=== PATIENT | male | born 1940 ===

== ENCOUNTER 2024-05-22 10:11 | Inpatient (IN) | payer MEDICARE, OTHER ==
[~2024-05-22] VITALS: Ht 184.6 cm; Wt 63.5 kg
[~2024-05-22 10:11] MED LIST: DONE10TA11 PO; MEMA10TA PO; MIRA50TA PO; PANT40TA49 PO; QUET25TA PO; ROSU40TA PO; TAMS-3 PO; TROS20TA3 PO; VENL37.55 PO
[2024-05-22] MEDS: IV NORMAL SALINE 1000 ML BAG IV ONE (10:36)
[2024-05-22 10:43] LABS: BASOPHILS % (AUTO) 0.7 % (0.0-2.0); EOSINOPHILS # (AUTO) 0.1 K/uL (0.0-0.7); EOSINOPHILS % (AUTO) 2.8 % (0.0-7.0); HEMOGLOBIN 10.9 g/dL (12.5-16.3); LYMPHOCYTES # (AUTO) 0.6 K/uL (0.8-4.8); LYMPHOCYTES % (AUTO) 12.9 % (20.5-51.5); MEAN CORPUSCULAR HEMOGLOBIN 31.9 uug (23.8-33.4); MEAN CORPUSCULAR HGB CONC 34 g/dL (32.5-36.3); MEAN CORPUSCULAR VOLUME 93.7 fL (73.0-96.2); MONOCYTES # (AUTO) 0.4 K/uL (0.1-1.30); NEUTROPHILS # (AUTO) 3.2 K/uL (1.8-8.9); NEUTROPHILS % (AUTO) 73.6 % (38.5-71.5); PLATELET COUNT (AUTO) 208 K/uL (152-348); RED BLOOD CELL COUNT(AUTO) 3.41 MIL/uL (4.06-5.63); RED CELL DISTRIBUTION WIDTH 14.8 % (12.1-16.2); WHITE BLOOD COUNT (AUTO) 4.4 K/uL (3.6-10.2)
[2024-05-22 10:48] LABS: DIFFERENTIAL COMMENT 1
[2024-05-22 10:53] LABS: AMMONIA < 10 umol/L (11-32); CALCIUM 8.5 mg/dL (8.5-10.1); CARBON DIOXIDE 27 mmol/L (21-32); CHLORIDE 104 mmol/L (98-107); GLUCOSE 111 mg/dL (74-106); POTASSIUM 4.5 mmol/L (3.5-5.1); SODIUM SERUM 142 mmol/L (136-145); UREA NITROGEN, BLOOD 12 mg/dL (7-18)
[2024-05-22 11:02] LABS: LACTIC ACID 2.3 mmol/L (0.4-2.0)
[2024-05-22 11:03] LABS: ETHANOL < 3 MG/DL (0-10)
[2024-05-22 11:06] LABS: THYROID STIMULATING HORMONE 3.207 mIU/mL (0.358-3.740)
[2024-05-22 11:07] LABS: ACETAMINOPHEN < 10.0 ug/mL (10-30); ALANINE AMINOTRANSFERASE 20 U/L (16-63); ALBUMIN 3.2 g/dL (3.4-5.0); ALKALINE PHOSPHATASE 58 U/L (50-136); ASPARTATE AMINOTRANSFERASE 16 U/L (15-37); BILIRUBIN,DIRECT 0.1 mg/dL (0.0-0.2); BILIRUBIN,TOTAL 0.4 mg/dL (0.2-1.0)
[2024-05-22] MEDS ORDERED: DEXAMETHASONE SOD PHOSPHATE 10 MG INJ ONE (11:32)
[2024-05-22] MEDS ORDERED: CEFTRIAXONE /D5W 50ML IVPB **ER PYXIS IV ONE (11:32)
[2024-05-22] MEDS ORDERED: VANCOMYCIN IV 200 ML ONE (11:32)
[2024-05-22] MEDS ORDERED: ROSU20TA32 PO (11:39)
[2024-05-22] MEDS ORDERED: ALPR0.255 PO (11:39)
[2024-05-22] MEDS: CEFTRIAXONE 2 G in IV DEXTROSE 5% 100 ML IV ONE (11:43)
[2024-05-22] MEDS: DEXAMETHASONE SOD PHOSPHATE 4 MG INJ IV ONE (11:43)
[2024-05-22] MEDS: VANCOMYCIN IV 1,000 MG in IV DEXTROSE 5% 250 ML IV ONE (12:23)
[2024-05-22 13:13] LABS: *BILIRUBIN,URIN NEGATIVE (NEGATIVE); *BLOOD, URINE NEGATIVE (NEGATIVE); *CLARITY,URINE CLEAR (CLEAR); *COLOR,URINE YELLOW (YELLOW); *KETONES,URINE NEGATIVE (NEGATIVE); *PROTEIN,URINE NEGATIVE (NEGATIVE); *UROBILINOGEN,URINE 0.2 E.U./dl (NORMAL); LEUKOCYTE ESTERASE ,URINE NEGATIVE (NEGATIVE); NITRITE, URINE NEGATIVE (NEGATIVE); PH,URINE 7.5 (5.0-8.0); UGLUCOSE NEGATIVE (NEGATIVE)
[2024-05-22 13:22] LABS: *AMPHETAMINE, URINE NEGATIVE (NEGATIVE); *BARBITURATE, URINE NEGATIVE (NEGATIVE); *BENZODIAZEPINE, URINE NEGATIVE (NEGATIVE); *CANNABINOID, URINE NEGATIVE (NEGATIVE); *COCCAINE, URINE NEGATIVE (NEGATIVE); *OPIATE, URINE NEGATIVE (NEGATIVE); *PHENCYCLIDINE SCREEN,URINE NEGATIVE (NEGATIVE); FENTANYL, URINE NEGATIVE (NEGATIVE)
[2024-05-22] MEDS ORDERED: ACYCLOVIR 500 MG VIAL IV ONE ×2 (15:17→22:37)
[2024-05-22] MEDS: ACYCLOVIR IV 500 MG in IV DEXTROSE 5% 100 ML IV SCH (15:22)
[2024-05-22] MEDS ORDERED: ONDANSETRON 4 MG/2 ML VIAL IV PRN (17:15)
[2024-05-22] MEDS ORDERED: ACETAMINOPHEN 325 MG TABLET PO PRN (17:15)
[2024-05-22] MEDS ORDERED: TEMAZEPAM 15 MG CAPSULE PO PRN (17:15)
[2024-05-22] MEDS ORDERED: MAGNESIUM HYDROXIDE 30 ML LIQUID UDC PO PRN (17:15)
[2024-05-22] MEDS ORDERED: MEMANTINE HCL 10 MG TABLET PO SCH (17:30)
[2024-05-22] MEDS: IV NS 1000 ML 1,000 ML IV PRN (18:20)
[2024-05-22] MEDS: CEFTRIAXONE 1 G in IV DEXTROSE 5% 50 ML IV SCH (18:24)
[2024-05-22 19:20] VITALS: BP 151/87; TEMP 97.7; O2SAT 95
[2024-05-22] MEDS ORDERED: TROSPIUM CHLORIDE 20 MG PO SCH (20:00)
[2024-05-22] MEDS: DOCUSATE SODIUM 250 MG CAPSULE PO SCH (20:24)
[2024-05-22] MEDS: MEMANTINE HCL 10 MG TABLET PO SCH (20:24)
[2024-05-22] MEDS: ATORVASTATIN 40 MG TABLET PO SCH (20:24)
[2024-05-22 23:30] VITALS: BP 128/69; TEMP 97.9; O2SAT 94
[2024-05-23] MEDS: QUETIAPINE FUMARATE 25 MG TABLET PO PRN (00:43)
[2024-05-23 05:11] VITALS: BP 122/71; TEMP 98.2; O2SAT 97
[2024-05-23] MEDS ORDERED: ACYCLOVIR 500 MG VIAL IV ONE (05:18)
[2024-05-23] MEDS: PANTOPRAZOLE SODIUM 40 MG TABLET.DR PO SCH (06:10)
[2024-05-23 06:52] LABS: BASOPHILS % (AUTO) 0.2 % (0.0-2.0); HEMATOCRIT 34.3 % (36.7-47.1); HEMOGLOBIN 12.1 g/dL (12.5-16.3); LYMPHOCYTES # (AUTO) 0.3 K/uL (0.8-4.8); LYMPHOCYTES % (AUTO) 3.9 % (20.5-51.5); MEAN CORPUSCULAR HEMOGLOBIN 32.3 uug (23.8-33.4); MEAN CORPUSCULAR HGB CONC 35 g/dL (32.5-36.3); MEAN CORPUSCULAR VOLUME 91.7 fL (73.0-96.2); MONOCYTES # (AUTO) 0.4 K/uL (0.1-1.30); NEUTROPHILS # (AUTO) 7.2 K/uL (1.8-8.9); NEUTROPHILS % (AUTO) 90.9 % (38.5-71.5); PLATELET COUNT (AUTO) 207 K/uL (152-348); RED BLOOD CELL COUNT(AUTO) 3.74 MIL/uL (4.06-5.63); RED CELL DISTRIBUTION WIDTH 14.7 % (12.1-16.2); WHITE BLOOD COUNT (AUTO) 7.9 K/uL (3.6-10.2)
[2024-05-23 07:05] LABS: DIFFERENTIAL COMMENT 1
[2024-05-23 07:16] LABS: ALANINE AMINOTRANSFERASE 18 U/L (16-63); ALBUMIN 3.2 g/dL (3.4-5.0); ALKALINE PHOSPHATASE 61 U/L (50-136); ASPARTATE AMINOTRANSFERASE 13 U/L (15-37); BILIRUBIN,TOTAL 0.3 mg/dL (0.2-1.0); CALCIUM 8.4 mg/dL (8.5-10.1); CARBON DIOXIDE 24 mmol/L (21-32); CHLORIDE 106 mmol/L (98-107); CHOLESTEROL 105 mg/dL (<200); CREATININE 0.6 mg/dL (0.6-1.3); GLUCOSE 111 mg/dL (74-106); HDL CHOLESTEROL 51 mg/dL (40-60); PHOSPHOROUS 4.4 mg/dL (2.5-4.9); SODIUM SERUM 141 mmol/L (136-145); TOTAL PROTEIN, SERUM 6.5 g/dL (6.4-8.2); TRIGLYCERIDES 26 MG/DL (30-150); UREA NITROGEN, BLOOD 9 mg/dL (7-18)
[2024-05-23] MEDS: VENLAFAXINE XR 37.5 MG CAP.SR.24H PO SCH (08:37)
[2024-05-23] MEDS: DONEPEZIL 10 MG TABLET PO SCH (08:37)
[2024-05-23] MEDS ORDERED: TEMAZEPAM 7.5 MG CAPSULE PO PRN (08:45)
[2024-05-23] MEDS ORDERED: OLANZAPINE 10 MG VIAL IM ONE (09:15)
[2024-05-23 11:38] VITALS: BP 126/71; TEMP 97.8; O2SAT 97
[2024-05-23] MEDS ORDERED: ACYCLOVIR IV 500 MG in IV DEXTROSE 5% 100 ML IV SCH (14:00)
[2024-05-23] MEDS ORDERED: DOCUSATE SODIUM 100 MG CAPSULE PO SCH (21:00)
== END 2024-05-23 14:15 | disposition home or self-care (01) | DRG 69 ==
LOC: ER 10:19 → TELE3 15:03
PROVIDERS: ADMIT Internal Medicine; ATTEND Internal Medicine
DX: G45.9 Transient cerebral ischemic attack, unspecified (principal); G92.8 Other toxic encephalopathy; E87.20 Acidosis, unspecified; D68.59 Other primary thrombophilia; Z68.1 Body mass index [BMI] 19.9 or less, adult; F01.53 Vascular dementia, unspecified severity, with mood disturbance; J90 Pleural effusion, not elsewhere classified; I95.9 Hypotension, unspecified; H93.12 Tinnitus, left ear; E78.5 Hyperlipidemia, unspecified; Z74.09 Other reduced mobility; M50.30 Other cervical disc degeneration, unspecified cervical region; M99.51 Intervertebral disc stenosis of neural canal of cervical region; Z95.0 Presence of cardiac pacemaker; Z95.818 Presence of other cardiac implants and grafts; R62.7 Adult failure to thrive; D64.9 Anemia, unspecified; I49.9 Cardiac arrhythmia, unspecified; E04.1 Nontoxic single thyroid nodule; Z86.73 Personal history of transient ischemic attack (TIA), and cerebral infarction without residual deficits; I70.0 Atherosclerosis of aorta; Z79.899 Other long term (current) drug therapy; K21.9 Gastro-esophageal reflux disease without esophagitis; F32.A Depression, unspecified; I11.9 Hypertensive heart disease without heart failure
CPT/HCPCS: 36415; 70450; 71045; 72125; 83605; 83735; 84100; 84443; 84484; 85025; 85730; 87040; 87086; A4663; G0378; G0480; J0133; J0696; J1100; J3370; J7040

== ENCOUNTER 2024-06-01 03:03 | Inpatient (IN) | payer MEDICARE, OTHER ==
[~2024-06-01] VITALS: Ht 167.6 cm; Wt 65.8 kg
[~2024-06-01 03:03] MED LIST changes: +ALPR0.255 PO; -MIRA50TA PO; +ROSU20TA32 PO; -ROSU40TA PO; -TAMS-3 PO
[2024-06-01] MEDS: LIDOCAINE 2% (GLYDO= UROJET) 10 ML JELLY MM ONE (03:15)
[2024-06-01] MEDS ORDERED: diphenhydrAMINE 50 MG/1 ML VIAL ONE (03:16)
[2024-06-01] MEDS ORDERED: HALOPERIDOL LACTATE 5 MG/1 ML VIAL ONE (03:16)
[2024-06-01] MEDS ORDERED: LORAZEPAM 2 MG/1 ML VIAL ONE ×2 (03:17→18:54)
[2024-06-01] MEDS: HALOPERIDOL LACTATE 5 MG/1 ML VIAL IM ONE (03:31)
[2024-06-01] MEDS: diphenhydrAMINE 50 MG/1 ML VIAL IM ONE (03:31)
[2024-06-01] MEDS: LORAZEPAM 2 MG/1 ML VIAL IM ONE (03:31)
[2024-06-01] MEDS: IV NORMAL SALINE 500 ML BAG IV ONE (04:15)
[2024-06-01 04:32] LABS: BASOPHILS % (AUTO) 0.5 % (0.0-2.0); HEMATOCRIT 40.6 % (36.7-47.1); HEMOGLOBIN 13.6 g/dL (12.5-16.3); LYMPHOCYTES # (AUTO) 0.6 K/uL (0.8-4.8); LYMPHOCYTES % (AUTO) 11.8 % (20.5-51.5); MEAN CORPUSCULAR HEMOGLOBIN 31.4 uug (23.8-33.4); MEAN CORPUSCULAR HGB CONC 33 g/dL (32.5-36.3); MEAN CORPUSCULAR VOLUME 93.8 fL (73.0-96.2); MONOCYTES # (AUTO) 0.6 K/uL (0.1-1.30); NEUTROPHILS # (AUTO) 3.7 K/uL (1.8-8.9); NEUTROPHILS % (AUTO) 74.7 % (38.5-71.5); PLATELET COUNT (AUTO) 213 K/uL (152-348); RED BLOOD CELL COUNT(AUTO) 4.33 MIL/uL (4.06-5.63); RED CELL DISTRIBUTION WIDTH 15.1 % (12.1-16.2); WHITE BLOOD COUNT (AUTO) 4.9 K/uL (3.6-10.2)
[2024-06-01 04:34] LABS: DIFFERENTIAL COMMENT 1
[2024-06-01 04:40] LABS: CALCIUM 9.2 mg/dL (8.5-10.1); CARBON DIOXIDE 21 mmol/L (21-32); CHLORIDE 103 mmol/L (98-107); CREATININE 1.3 mg/dL (0.6-1.3); GLUCOSE 80 mg/dL (74-106); POTASSIUM 3.8 mmol/L (3.5-5.1); SODIUM SERUM 142 mmol/L (136-145); UREA NITROGEN, BLOOD 33 mg/dL (7-18)
[2024-06-01 04:45] LABS: ALANINE AMINOTRANSFERASE 21 U/L (16-63); ALBUMIN 4.2 g/dL (3.4-5.0); ALKALINE PHOSPHATASE 77 U/L (50-136); ASPARTATE AMINOTRANSFERASE 26 U/L (15-37); BILIRUBIN,DIRECT 0.3 mg/dL (0.0-0.2); TOTAL PROTEIN, SERUM 7.4 g/dL (6.4-8.2)
[2024-06-01 04:46] LABS: ACETAMINOPHEN < 10.0 ug/mL (10-30)
[2024-06-01 04:53] LABS: THYROID STIMULATING HORMONE 3.999 mIU/mL (0.358-3.740)
[2024-06-01 05:52] LABS: *BILIRUBIN,URIN 1+ (NEGATIVE); *BLOOD, URINE NEGATIVE (NEGATIVE); *CLARITY,URINE CLEAR (CLEAR); *COLOR,URINE YELLOW (YELLOW); *KETONES,URINE 2+ (NEGATIVE); *PROTEIN,URINE 1+ (NEGATIVE); *UROBILINOGEN,URINE 0.2 E.U./dl (NORMAL); LEUKOCYTE ESTERASE ,URINE NEGATIVE (NEGATIVE); NITRITE, URINE NEGATIVE (NEGATIVE); PH,URINE 5.5 (5.0-8.0); UGLUCOSE NEGATIVE (NEGATIVE)
[2024-06-01 06:04] LABS: BACTERIA,URINE FEW /HPF (NONE SEEN); MUCUS,URINE MODERATE /LPF (0-FEW); RBC,URINE NONE SEEN /HPF (0-3); SQUAMOUS EPITHELIAL CELL,UR NONE SEEN /HPF (NONE SEEN); WBC,URINE NONE SEEN /HPF (0-3)
[2024-06-01 16:04] LABS: *AMPHETAMINE, URINE NEGATIVE (NEGATIVE); *BENZODIAZEPINE, URINE POSITIVE (NEGATIVE); *CANNABINOID, URINE NEGATIVE (NEGATIVE); *COCCAINE, URINE NEGATIVE (NEGATIVE); *OPIATE, URINE NEGATIVE (NEGATIVE); *PHENCYCLIDINE SCREEN,URINE NEGATIVE (NEGATIVE); FENTANYL, URINE NEGATIVE (NEGATIVE)
[2024-06-01 16:05] LABS: *BARBITURATE, URINE NEGATIVE (NEGATIVE)
[2024-06-01 16:06] LABS: AMMONIA 26 umol/L (11-32); ETHANOL < 3 MG/DL (0-10)
[2024-06-01] MEDS: LORAZEPAM 2 MG/1 ML VIAL IV ONE (18:58)
[2024-06-02 13:14] VITALS: BP 154/83; TEMP 98.4; O2SAT 98
[2024-06-02] MEDS ORDERED: ACETAMINOPHEN 325 MG TABLET PO PRN (14:45)
[2024-06-02] MEDS ORDERED: MAGNESIUM HYDROXIDE 30 ML LIQUID UDC PO PRN (14:45)
[2024-06-02] MEDS ORDERED: MAG HYDROX/AL HYDROX/SIMETH 30 ML LIQUID UDC PO PRN (14:45)
[2024-06-02] MEDS ORDERED: CLONAZEPAM 1 MG TABLET PO PRN (14:45)
[2024-06-02] MEDS ORDERED: QUETIAPINE FUMARATE 25 MG TABLET PO PRN (14:45)
[2024-06-02] MEDS ORDERED: ZOLPIDEM 5 MG TABLET PO PRN (14:45)
[2024-06-02] MEDS: BLOOD SUGAR DIAGNOSTIC 1 EACH STRIP VI ONE (16:35)
[2024-06-02 16:36] VITALS: BP 139/87; TEMP 98; O2SAT 98
[2024-06-02 20:00] VITALS: BP 163/88; TEMP 98.3; O2SAT 99
[2024-06-02] MEDS: ZOLPIDEM 5 MG TABLET PO PRN (21:29)
[2024-06-03 08:10] VITALS: BP 155/96; TEMP 97.7; O2SAT 96
[2024-06-03] MEDS: DIVALPROEX 125 MG TABLET.DR PO SCH (14:39)
[2024-06-03 16:22] VITALS: BP 154/75; TEMP 98.5; O2SAT 95
[2024-06-03 20:00] VITALS: BP 122/75; TEMP 98; O2SAT 96
[2024-06-03] MEDS ORDERED: Medication Not On Formulary EA (Trospium Chloride 20 MG) PO SCH (21:00)
[2024-06-03] MEDS: ATORVASTATIN 40 MG TABLET PO SCH (21:57)
[2024-06-03] MEDS: MIRTAZAPINE 15 MG TABLET PO SCH (21:57)
[2024-06-04] MEDS: PANTOPRAZOLE SODIUM 40 MG TABLET.DR PO SCH (07:03)
[2024-06-04 07:49] VITALS: BP 90/57; TEMP 98; O2SAT 96
[2024-06-04 15:18] VITALS: BP 95/65; TEMP 97.8; O2SAT 96
[2024-06-04 20:00] VITALS: BP 123/71; TEMP 98.4; O2SAT 96
[2024-06-04] MEDS: [UNRECOGNIZED DRUG - OTHER] PO SCH (20:28)
[2024-06-04] MEDS: TROSPIUM 20 MG PO SCH (20:28)
[2024-06-05 07:46] VITALS: BP 115/65; TEMP 98.2; O2SAT 98
[2024-06-05 15:58] VITALS: BP 136/73; TEMP 98.2; O2SAT 98
[2024-06-05 19:49] VITALS: BP 128/69; TEMP 98.7; O2SAT 99
[2024-06-06 08:14] VITALS: BP 124/95; TEMP 98.3; O2SAT 96
[2024-06-06] MEDS: ENSURE ENLIVE (VAN) 240 ML LIQUID PO SCH (09:04)
[2024-06-06 15:43] LABS: CALCIUM 9.2 mg/dL (8.5-10.1); CARBON DIOXIDE 29 mmol/L (21-32); CHLORIDE 108 mmol/L (98-107); CREATININE 0.9 mg/dL (0.6-1.3); GLUCOSE 83 mg/dL (74-106); POTASSIUM 4.1 mmol/L (3.5-5.1); SODIUM SERUM 144 mmol/L (136-145); UREA NITROGEN, BLOOD 26 mg/dL (7-18)
[2024-06-06 15:45] LABS: AMMONIA < 10 umol/L (11-32)
[2024-06-06 15:49] LABS: ALANINE AMINOTRANSFERASE 22 U/L (16-63); ALBUMIN 3.3 g/dL (3.4-5.0); ALKALINE PHOSPHATASE 73 U/L (50-136); ASPARTATE AMINOTRANSFERASE 16 U/L (15-37); BILIRUBIN,DIRECT 0.2 mg/dL (0.0-0.2); BILIRUBIN,TOTAL 0.5 mg/dL (0.2-1.0); TOTAL PROTEIN, SERUM 6.8 g/dL (6.4-8.2)
[2024-06-06 16:47] VITALS: BP 122/57; TEMP 98.1; O2SAT 96
== END 2024-06-06 21:12 | disposition short-term general hospital (02) | DRG 885 ==
LOC: ER 03:06 → GPS IN 06-02 04:09 → GPS 06-02 10:23
PROVIDERS: ADMIT Psychiatry & Neurology Psychiatry
DX: F39 Unspecified mood [affective] disorder (principal); F02.811 Dementia in other diseases classified elsewhere, unspecified severity, with agitation; F02.82 Dementia in other diseases classified elsewhere, unspecified severity, with psychotic disturbance; G93.40 Encephalopathy, unspecified; G30.9 Alzheimer's disease, unspecified; N17.9 Acute kidney failure, unspecified; Z87.891 Personal history of nicotine dependence; E78.5 Hyperlipidemia, unspecified; Z95.0 Presence of cardiac pacemaker; Z91.148 Patient's other noncompliance with medication regimen for other reason; Z95.818 Presence of other cardiac implants and grafts; H93.13 Tinnitus, bilateral; Z79.899 Other long term (current) drug therapy; I10 Essential (primary) hypertension; F10.20 Alcohol dependence, uncomplicated; G47.00 Insomnia, unspecified; Z86.73 Personal history of transient ischemic attack (TIA), and cerebral infarction without residual deficits
CPT/HCPCS: 36415; 70450; 71045; 84443; 85025; A4606; A4663; C1758; G0480; J1200; J1630; J2060; J7040